=== PATIENT | male | born 1980 | race Caucasian/White ===

== ENCOUNTER 2019-01-21 14:49 | Outpatient (CLI) | payer BC ==
--- NOTE | 2019-01-21 15:18 | XRay Report ---
CHEST 2 VIEWS INDICATION: 10/07/2018. COMPARISON: None FINDINGS: Support devices: None. Heart: Within normal limits. Lungs/pleura: No acute air space or interstitial disease. No pneumothorax. Additional findings: None. IMPRESSION: Normal chest x-ray. Signer Name: Gabriel Redmond Jr, MD Signed: 01/21/2019 3:13 PM Workstation Name: [id number]
== END 2019-01-21 14:50 | disposition home or self-care (01) ==
LOC: XRAY 14:49
PROVIDERS: ATTEND Internal Medicine
DX: R05 Cough (principal)
CPT/HCPCS: 71046

== ENCOUNTER 2019-04-03 10:10 | Outpatient (CLI) | payer BC ==
[2019-04-03 10:28] LABS: Basophils % (Auto) 0.6 % (0.0-1.8); Eosinophils # (Auto) 0.1 K/mm3 (0.0-0.4); Eosinophils % (Auto) 1.8 % (0.0-4.3); Hematocrit 47.9 % (35.5-45.6); Hemoglobin 15.9 gm/dl (11.8-15.2); Lymphocytes # (Auto) 2.2 K/mm3 (1.2-5.4); Lymphocytes % (Auto) 35.5 % (13.4-35.0); Mean Corpuscular HGB Conc 33 % (32-34); Mean Corpuscular Volume 88 fl (84-94); Monocytes # (Auto) 0.5 K/mm3 (0.0-0.8); Monocytes % (Auto) 8.1 % (0.0-7.3); Platelet Count 194 K/mm3 (140-440); Red Blood Count 5.45 M/mm3 (3.65-5.03); Red Cell Distribution Width 14.1 % (13.2-15.2)
[2019-04-03 10:49] LABS: Alanine Aminotransferase 27 units/L (7-56); Albumin 4.6 g/dL (3.9-5); BUN/Creatinine Ratio 13; Blood Urea Nitrogen 13 mg/dL (9-20); Chol/HDL Ratio 3.56 %; HDL Cholesterol 46 mg/dL (40-59); Hemolysis Index 9; LDL Cholesterol,Direct 111 mg/dL (50-130)
[2019-04-07 11:54] LABS: Vitamin D, 25-OH, D2 <4 ng/mL
== END 2019-04-03 10:11 | disposition home or self-care (01) ==
LOC: LAB 10:10 → EDBD 10:10 → LAB 10:11
PROVIDERS: ATTEND Internal Medicine
DX: Z00.00 Encounter for general adult medical examination without abnormal findings (principal); Z13.220 Encounter for screening for lipoid disorders; Z13.29 Encounter for screening for other suspected endocrine disorder; Z13.21 Encounter for screening for nutritional disorder
CPT/HCPCS: 36415; 80053; 80061; 82306; 82607; 83036; 84443; 85025

== ENCOUNTER 2019-05-18 13:03 | Outpatient (CLI) | payer BC ==
[2019-05-18 13:44] LABS: Alanine Aminotransferase 33 units/L (7-56); Albumin 4.7 g/dL (3.9-5); BUN/Creatinine Ratio 15; Blood Urea Nitrogen 15 mg/dL (9-20); Calcium 9.4 mg/dL (8.4-10.2); Hemolysis Index 34
== END 2019-05-18 13:04 | disposition home or self-care (01) ==
LOC: LAB 13:03
PROVIDERS: ATTEND Internal Medicine Infectious Disease
DX: Z22.7 Latent tuberculosis (principal)
CPT/HCPCS: 36415; 80053

== ENCOUNTER 2020-07-25 11:32 | Outpatient (CLI) | payer BC ==
[2020-07-25 12:14] LABS: Basophils % (Auto) 0.3 % (0.0-1.8); Eosinophils # (Auto) 0.1 K/mm3 (0.0-0.4); Hematocrit 46.2 % (35.5-45.6); Hemoglobin 15.8 gm/dl (11.8-15.2); Lymphocytes % (Auto) 34.2 % (13.4-35.0); Mean Corpuscular HGB Conc 34 % (32-34); Mean Corpuscular Volume 86 fl (84-94); Monocytes # (Auto) 0.5 K/mm3 (0.0-0.8); Monocytes % (Auto) 8.8 % (0.0-7.3); Platelet Count 161 K/mm3 (140-440); Red Blood Count 5.39 M/mm3 (3.65-5.03); Red Cell Distribution Width 13.1 % (13.2-15.2)
[2020-07-25 12:29] LABS: Alanine Aminotransferase 14 units/L (7-56); Albumin 4.4 g/dL (3.9-5); BUN/Creatinine Ratio 11; Blood Urea Nitrogen 10 mg/dL (9-20); Calcium 8.9 mg/dL (8.4-10.2); Chol/HDL Ratio 4.02 %; HDL Cholesterol 49 mg/dL (40-59); Hemolysis Index 7; LDL Cholesterol,Direct 136 mg/dL (50-130)
== END 2020-07-25 11:33 | disposition home or self-care (01) ==
LOC: LAB 11:32
PROVIDERS: ATTEND Internal Medicine
DX: Z00.00 Encounter for general adult medical examination without abnormal findings (principal); Z13.1 Encounter for screening for diabetes mellitus; Z13.220 Encounter for screening for lipoid disorders; Z13.29 Encounter for screening for other suspected endocrine disorder; E55.9 Vitamin D deficiency, unspecified
CPT/HCPCS: 36415; 80053; 80061; 82306; 83036; 84443; 85025

== ENCOUNTER 2021-07-24 12:04 | Outpatient (CLI) | payer BC ==
[2021-07-24 12:37] LABS: Hematocrit 46.1 % (35.5-45.6); Hemoglobin 15.2 gm/dl (11.8-15.2); Mean Corpuscular HGB Conc 33 % (32-34); Mean Corpuscular Volume 86 fl (84-94); Platelet Count 190 K/mm3 (140-440); Red Blood Count 5.37 M/mm3 (3.65-5.03); Red Cell Distribution Width 13.7 % (13.2-15.2)
[2021-07-24 12:54] LABS: Alanine Aminotransferase 22 units/L (7-56); Albumin 4.8 g/dL (3.9-5); Blood Urea Nitrogen 11 mg/dL (9-20); Calcium 9.4 mg/dL (8.4-10.2); HDL Cholesterol 46 mg/dL (40-59); Hemolysis Index 6; LDL Cholesterol,Direct 140 mg/dL (50-130)
[2021-07-24 12:56] LABS: BUN/Creatinine Ratio 16
[2021-07-26 14:06] LABS: Vitamin D, 25-OH, D2 <4 ng/mL
== END 2021-07-24 12:05 | disposition home or self-care (01) ==
LOC: LAB 12:04
PROVIDERS: ATTEND Internal Medicine
DX: Z13.220 Encounter for screening for lipoid disorders (principal); Z13.1 Encounter for screening for diabetes mellitus; Z13.21 Encounter for screening for nutritional disorder
CPT/HCPCS: 36415; 80053; 80061; 82306; 84443; 85027

== ENCOUNTER 2021-10-10 11:16 | Outpatient (CLI) | payer BC ==
--- NOTE | 2021-10-10 12:56 | XRay Report ---
LEFT TIBIA AND FIBULA 2 VIEWS INDICATION: M79.605 PAIN IN LEFT LEG. COMPARISON: None. IMPRESSION: Chronic, healed fractures through the mid shafts of both the tibia and fibula are eviden t. The tibial fracture is secured by an intramedullary demario with proximal and distal screws. No acute osseous abnormality is detected. The soft tissues are within normal limits. Signer Name: Gabriel Redmond Jr, MD Signed: 10/10/2021 12:52 PM Workstation Name: [id number]
--- NOTE | 2021-10-10 12:57 | Vascular Lab Report ---
DUPLEX DOPPLER LOWER EXTREMITY VEINS, BILATERAL INDICATION / CLINICAL INFORMATION: R22.42 LOCALIZED SWELLING,MASS AND LUMP,LEFT LOWER LIMB. TECHNIQUE: Duplex doppler imaging was performed through the veins of both lower extremities using venous jonathon brady and other maneuvers. COMPARISON: None available. FINDINGS: RIGHT COMMON FEMORAL VEIN: Negative. RIGHT FEMORAL VEIN: Negative. RIGHT POPLITEAL VEIN: Negative. RIGHT CALF VEINS: Negative. LEFT COMMON FEMORAL VEIN: Negative. LEFT FEMORAL VEIN: Negative. LEFT POPLITEAL VEIN: Negative. LEFT CALF VEINS: Negative. ADDITIONAL FINDINGS: None. IMPRESSION: 1. No sonographic evidence for DVT in either lower extremity. Signer Name: Gabriel Redmond Jr, MD Signed: 10/10/2021 12:52 PM Workstation Name: [id number]
== END 2021-10-10 11:17 | disposition home or self-care (01) ==
LOC: VAS 11:16
PROVIDERS: ATTEND Internal Medicine
DX: R22.42 Localized swelling, mass and lump, left lower limb (principal); M79.605 Pain in left leg